=== PATIENT | male | born 1940 | race Caucasian/White ===

== ENCOUNTER 2019-03-09 21:29 | Emergency (ER) | payer MEDICARE, BC ==
[2019-03-09 21:44] VITALS: BP 137/70
[2019-03-09] MEDS ORDERED: Ketorolac *IM* INJ* 60 MG/2 ML VIAL IM ONE (21:58)
[2019-03-09] MEDS ORDERED: Cyclobenzaprine TAB* 10 MG PO ONE (21:58)
[2019-03-09] MEDS ORDERED: Dexamethasone IV* 4 MG/ML 1 ML (4 MG) IM ONE (21:58)
--- NOTE | 2019-03-09 22:08 | ED ---
Neck Pain - HPI Summary HPI Summary: Patient is a 78-year-old male who presents to the urgent care with chief complaint of having left-sided neck pain. He reports that the pain center for 4 days ago and has become worse since then. The patient denies any history of trauma or heavy lifting, denies any fevers or chills, denies any headaches but denies any photophobia, denies any difficulty swallowing. He has no other complaints. 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 Verified 03/09/19 21:44 Shock PMH/Surg Hx/FS Hx/Imm Hx Previously Healthy: Yes Endocrine/Hematology History: Denies: Hx Diabetes, Hx Thyroid Disease Cardiovascular History: Denies: Hx Hypercholesterolemia, Hx Hypertension, Hx Peripheral Vascular Disease Respiratory History: Denies: Hx Asthma, Hx Chronic Obstructive Pulmonary Disease (COPD) GI History: Denies: Hx Ulcer Musculoskeletal History: Denies: Hx Arthritis, Hx Rheumatoid Arthritis, Hx Osteoporosis Sensory History: Denies: Hx Cataracts, Hx Contacts or Glasses, Hx Glaucoma Opthamlomology History: Denies: Hx Cataracts, Hx Contacts or Glasses, Hx Glaucoma Neurological History: Denies: Hx Headaches, Hx Seizures, Hx Transient Ischemic Attacks (TIA) Psychiatric History: Denies: Hx Anxiety, Hx Depression - Surgical History Surgery Procedure, Year, and Place: tonsillectomy. left inguinal hernia. left knee arthroscopy - torn meniscus Infectious Disease History: No Infectious Disease History: Denies: Hx Clostridium Difficile, Hx Hepatitis, Hx Human Immunodeficiency Virus (HIV), Hx of Known/Suspected MRSA, Hx Shingles, Traveled Outside the [place] in Last 30 Days - Family History Known Family History: Positive: Non-Contributory - Social History Alcohol Use: None Hx Substance Use: No Substance Use Type: Reports: None Hx Tobacco Use: No Smoking Status (MU): Never Smoked Tobacco Review of Systems Constitutional: Negative Eyes: Negative ENT: Negative Cardiovascular: Negative Respiratory: Negative Gastrointestinal: Negative Genitourinary: Negative Musculoskeletal: Other - neck pain Skin: Negative Neurological: Negative Psychological: Normal All Other Systems Reviewed And Are Negative: Yes Physical Exam - Summary Physical Exam Summary: VITAL SIGNS: Reviewed. GENERAL: Patient is a well developed and nourished male who is lying comfortably in the stretcher. Patient is not in any acute respiratory distress. HEAD AND FACE: No signs of trauma. No ecchymosis, hematomas or skull depressions. No sinus tenderness. EYES: PERRLA, EOMI x 2, No injected conjunctiva, no nystagmus. EARS: Hearing grossly intact. Ear canals and tympanic membranes are within normal limits. MOUTH: Oropharynx within normal limits. NECK: Supple, trachea is midline, no adenopathy, no JVD, no carotid bruit, no c- spine tenderness, positive left sternocleidomastoid muscle and trapezius muscle tenderness and stiffness. Decreased range of motion secondary to pain. CHEST: Symmetric, no tenderness at palpation LUNGS: Clear to auscultation bilaterally. No wheezing or crackles. CVS: Regular rate and rhythm, S1 and S2 present, no murmurs or gallops appreciated. ABDOMEN: Soft, non-tender. No signs of distention. No rebound no guarding, and no masses palpated. Bowel sounds are normal. EXTREMITIES: FROM in all major joints, no edema, no cyanosis or clubbing. NEURO: Alert and oriented x 3. No acute neurological deficits. Speech is normal and follows commands. SKIN: Dry and warm Vital Signs On Initial Exam: Initial Vitals Temp Pulse Resp BP Pulse Ox 98 F 81 16 137/70 99 03/09/19 21:40 03/09/19 21:40 03/09/19 21:40 03/09/19 21:40 03/09/19 21:40 Diagnostics - Vital Signs Vital Signs Temp Pulse Resp BP Pulse Ox 03/09/19 21:40 98 F 81 16 137/70 99 - Laboratory Lab Statement: Any lab studies that have been ordered have been reviewed, and results considered in the medical decision making process. Neck Course/Dx - Course Assessment/Plan: In the urgent care course the patient has a stiff neck and tenderness along the sternocleidomastoid muscle and trapezius muscle. Therefore I believe that the patient has torticollis. I gave the patient and Decadron, Toradol and Flexeril. This time the patient will be discharged home with a prescription for Medrol Dosepak, Flexeril and [place]. Patient is hemodynamically stable alert oriented 3. He was recommended to go to the ER if he develops any fever, headache, blurred vision, photophobia or any other complaint. The patient understands and agrees. - Diagnoses Provider Diagnoses: Torticollis, acute Discharge - Sign-Out/Discharge Documenting (check all that apply): Patient Departure All imaging exams completed and their final reports reviewed: No Studies - Discharge Plan Condition: Stable Disposition: HOME Prescriptions: Cyclobenzaprine TAB* [Flexeril 10 MG TAB*] 10 mg PO TID PRN #12 tab PRN Reason: Pain HYDROcodone/ACETAMIN 5-325 MG* [[place] 5-325 TAB*] 1 tab PO Q6H PRN #10 tab MDD 4 PRN Reason: Pain methylPREDNISolone [Medrol Dosepak 4 MG*] 0 mg PO .SEE CHRISTI INSTRUCTION #1 christi Patient Education Materials: Spasmodic Torticollis (ED) Referrals: Jolanta Mukherjee MD [Primary Care Provider] - Additional Instructions: Take medications as instructed Increase your fluid intake F/U with PCP in the next 2-3 days Return to the UC if symptoms worsen - Billing Disposition and Condition Condition: STABLE Disposition: Home
== END 2019-03-09 22:20 | disposition home or self-care (01) ==
LOC: UCEAST 21:29
DX: M43.6 Torticollis (principal)
CPT/HCPCS: 96372; 99202; A9270-GY; G0463; J1100; J1885

== ENCOUNTER 2021-06-18 12:24 | Inpatient (IN) ==
[2021-06-18 17:41] LABS: ABS Lymphocytes 0.6 10^3/ul (1.0-4.8); ABS Monocytes 0.2 10^3/ul (0-0.8); ABS Neutrophils 2.5 10^3/ul (1.5-7.7); Eosinophil % 0.1 %; Hematocrit 40 % (42-52); Hemoglobin 14.1 g/dL (14.0-18.0); Lymphocyte % 17.6 %; Mean Corpuscular HGB Conc 36 g/dL (31-36); Mean Corpuscular Hemoglobin 28 pg (27-31); Mean Corpuscular Volume 80 fL (80-94); Mean Platelet Volume 8.2 fL (7.4-10.4); Nucleated Red Blood Cells % 0.2; Platelet Count 171 10^3/uL (150-450); Red Blood Count 4.98 10^6 /uL (4.18-5.48); Red Cell Distribution Width 14 % (10-15); White Blood Count 3.3 10^3/uL (3.5-10.8)
[2021-06-18 17:53] LABS: Troponin I 0.01 ng/mL (<0.03)
[2021-06-18 18:06] LABS: Albumin 3.8 g/dL (3.2-5.2); Albumin/Globulin Ratio 1.3 (1-3); C Reactive Protein 50.04 mg/L (<8.01); Calcium 8.2 mg/dL (8.6-10.3); Potassium 4.1 mmol/L (3.5-5.0); Total Bilirubin 0.8 mg/dL (0.2-1.0); Total Protein 6.8 g/dL (6.4-8.9)
[2021-06-18] MEDS ORDERED: CASIRIVI/IMDEVI-MAB 600-600 MG 10 ML in NS 0.9% 100 ml BAG 100 ML IV ONE (18:25)
[2021-06-18] MEDS ORDERED: NS 0.9% 50 ML 50 ML IV ONE (18:56)
[2021-06-19] MEDS: Enoxaparin 40 MG/0.4 ML SYR SUBCUT SCH ×2 (01:31→21:53)
[2021-06-19] MEDS ORDERED: NS 0.9% 500 ml BAG 500 ML IV SCH (02:00)
[2021-06-19 06:49] LABS: ABS Lymphocytes 0.7 10^3/ul (1.0-4.8); ABS Monocytes 0.2 10^3/ul (0-0.8); ABS Neutrophils 2.7 10^3/ul (1.5-7.7); Hematocrit 36 % (42-52); Hemoglobin 12.9 g/dL (14.0-18.0); Lymphocyte % 20.1 %; Mean Corpuscular HGB Conc 36 g/dL (31-36); Mean Corpuscular Hemoglobin 28 pg (27-31); Mean Corpuscular Volume 79 fL (80-94); Mean Platelet Volume 8.1 fL (7.4-10.4); Nucleated Red Blood Cells % 0.1; Platelet Count 165 10^3/uL (150-450); Red Blood Count 4.57 10^6 /uL (4.18-5.48); Red Cell Distribution Width 13 % (10-15); White Blood Count 3.6 10^3/uL (3.5-10.8)
[2021-06-19 07:06] LABS: Albumin 3.2 g/dL (3.2-5.2); Albumin/Globulin Ratio 1.2 (1-3); Calcium 7.6 mg/dL (8.6-10.3); Globulin 2.6 g/dL (2-4); Total Bilirubin 0.6 mg/dL (0.2-1.0); Total Protein 5.8 g/dL (6.4-8.9)
[2021-06-19 14:44] LABS: Calcium 8.5 mg/dL (8.6-10.3); Potassium 3.8 mmol/L (3.5-5.0)
[2021-06-19] MEDS ORDERED: Lactated Ringers 1000 ml BAG 1,000 ML IV SCH (16:00)
[2021-06-19] MEDS: NS 0.9% 1000 ml BAG 1,000 ML IV SCH (17:20)
[2021-06-20] MEDS: NS 0.9% 1000 ml BAG 1,000 ML IV SCH (01:37)
[2021-06-20 07:02] LABS: Hematocrit 35 % (42-52); Hemoglobin 12.8 g/dL (14.0-18.0); Mean Corpuscular HGB Conc 36 g/dL (31-36); Mean Corpuscular Hemoglobin 29 pg (27-31); Mean Corpuscular Volume 79 fL (80-94); Mean Platelet Volume 7.9 fL (7.4-10.4); Platelet Count 190 10^3/uL (150-450); Red Blood Count 4.45 10^6 /uL (4.18-5.48); Red Cell Distribution Width 13 % (10-15); White Blood Count 2.8 10^3/uL (3.5-10.8)
[2021-06-20 07:18] LABS: Calcium 7.8 mg/dL (8.6-10.3); Potassium 3.6 mmol/L (3.5-5.0)
[2021-06-20 09:58] VITALS: BP 132/78
[2021-06-20] MEDS ORDERED: Potassium Chlor 20 meq TAB.ER PO ONE (12:54)
== END 2021-06-20 11:05 | disposition home or self-care (01) | DRG 178 ==
LOC: ED 12:24 → SUATTDRO 21:52 → MED 21:52
PROVIDERS: ADMIT Internal Medicine; ATTEND Internal Medicine